=== PATIENT | female | born 1955 | race Caucasian/White ===

== ENCOUNTER → 2019-07-09 | Outpatient (REF) | payer OTHER ==
[~2019-07-09] MED LIST: ACIP1TAB PO; ATEN25TA PO; COUM2.5T17 PO; EFFE150C2 PO; MAGN30TA2 PO; PERC5TAB12 PO; VITA-110 PO; levothyroxine OR
== END ==
LOC: M LAB REF 09:17
PROVIDERS: ATTEND Surgery
DX: D48.5 Neoplasm of uncertain behavior of skin (principal)

== ENCOUNTER → 2020-01-17 | Outpatient (CLI) | payer OTHER ==
--- NOTE | 2020-02-06 09:50 | REPMRS ---
Patient History The patient states she has not had a clinical breast exam in over a year. Family history of breast cancer at age 45 in daughter. Took hormonal contraceptives for 1 year. Took estrogen for 1 month. Digital Woman Screen Mammo: January 17, 2020 - Exam #: [id number] Bilateral CC and MLO view(s) were taken. Technologist: Yolanda Ramirez, Technologist Prior study comparison: January 01, 2019, bilateral digital woman screen mammo performed at [facility]. 2016, bilateral digital mammo screening bilat, performed at [facility]. January 26, 2015, bilateral digital mammo screening bilat, performed at [facility]. FINDINGS: The breast tissue is almost entirely fat. The Volpara volumetric breast density category is: A. There has been no change in the appearance of the mammogram from the prior studies. There is no interval development of dominant mass, architectural distortion, or grouped microcalcification typical of malignancy. 3-D tomosynthesis shows no additional findings. Assessment: BI-RADS/ACR category 1 mammogram. Negative Mammogram. Recommendation Routine screening mammogram of both breasts in 1 year (for women over age 40). This patient's Lifetime Breast Cancer RIsk is estimated at 9.5 %. This mammogram was interpreted with the aid of an FDA-approved computer-aided dectection system. Electronically Signed By: Reji Godfrey MD 02/06/20 0950
== END ==
LOC: M WHC 17:18
PROVIDERS: ATTEND Internal Medicine
DX: Z12.31 Encounter for screening mammogram for malignant neoplasm of breast (principal); Z80.3 Family history of malignant neoplasm of breast

== ENCOUNTER → 2021-01-22 | Outpatient (CLI) | payer OTHER ==
--- NOTE | 2021-01-22 13:45 | REPMRS ---
Patient History The patient states she has not had a clinical breast exam in over a year. Family history of breast cancer at age 45 in daughter. Took hormonal contraceptives for 1 year. Took estrogen for 1 month. No breast complaints today Patient signed the MRS sheet Patient states she has both Pfizer vaccines in her right arm in July, not sure of the dates Priors on PACS Patient Identification Verified Digital Woman Screen Mammo: January 22, 2021 - Exam #: [id number] Bilateral CC and MLO view(s) were taken. Technologist: Yolanda Ramirez, Technologist Prior study comparison: January 17, 2020, bilateral digital woman screen mammo performed at [facility]. January 01, 2019, bilateral digital woman screen mammo performed at [facility]. 2017, bilateral digital mammo screening bilat, performed at [facility]. FINDINGS: The breast tissue is almost entirely fat. The Volpara volumetric breast density category is: A. There has been no change in the appearance of the mammogram from the prior studies. There is no interval development of dominant mass, architectural distortion, or grouped microcalcification typical of malignancy. 3-D tomosynthesis shows no additional findings. Assessment: BI-RADS/ACR category 1 mammogram. Negative Mammogram. Recommendation Routine screening mammogram of both breasts in 1 year (for women over age 40). This patient's [facility] Lifetime Breast Cancer RIsk is estimated at 9.0 %. This mammogram was interpreted with the aid of an FDA-approved computer-aided dectection system. Electronically Signed By: Reji Godfrey MD 01/22/21 5705
== END ==
LOC: M WHC 12:37
PROVIDERS: ATTEND Internal Medicine
DX: Z12.31 Encounter for screening mammogram for malignant neoplasm of breast (principal)

== ENCOUNTER → 2021-07-20 | Outpatient (REF) | payer OTHER ==
[2021-07-20 13:34] LABS: APPEARANCE, URINE TURBID (CLEAR); BACTERIA, URINE AUTO NEGATIVE (NEGATIVE); BILIRUBIN, URINE AUTO NEGATIVE (NEGATIVE); BLOOD, URINE BLOOD NEGATIVE (NEGATIVE); COLOR, URINE AMBER (YELLOW); GLUCOSE, URINE (UA) AUTO NEGATIVE (NEGATIVE); KETONE, URINE AUTO NEGATIVE (NEGATIVE); LEUKOCYTE ESTERASE, URINE AUTO 1+ (NEGATIVE); MUCUS, URINE SMALL (NEGATIVE); NITRITE, URINE AUTO NEGATIVE (NEGATIVE); PROTEIN, URINE AUTO NEGATIVE (NEGATIVE); RBC, URINE AUTO 0 /HPF (0-3); SPECIFIC GRAVITY URINE AUTO 1.023 (1.002-1.035); SQUAMOUS EPITHELIAL CELL UR AU 8 /HPF (0-6); TRANSITIONAL EPITHELIAL AUTO <1 /HPF; UROBILINOGEN, URINE AUTO 0.2 mg/dL (0.0-2.0); WBC, URINE AUTO 0 /HPF (0-3)
== END ==
LOC: M PLALAB 09:28
PROVIDERS: ATTEND Obstetrics & Gynecology
DX: R82.90 Unspecified abnormal findings in urine (principal)

== ENCOUNTER → 2021-09-15 | Outpatient (CLI) | payer OTHER | LOC: M WUC 15:55 | PROVIDERS: ATTEND Internal Medicine | DX: M25.572 Pain in left ankle and joints of left foot (principal) ==

== ENCOUNTER → 2022-02-28 | Outpatient (CLI) | payer OTHER | LOC: M WUC 09:55 | PROVIDERS: ATTEND Internal Medicine | DX: I10 Essential (primary) hypertension (principal) ==

== ENCOUNTER → 2022-05-31 | Outpatient (CLI) | payer OTHER | LOC: M RAD 09:15 | PROVIDERS: ATTEND Physician Assistant | DX: M79.604 Pain in right leg (principal) ==

== ENCOUNTER → 2022-08-08 | Outpatient (CLI) | payer OTHER | LOC: M WHC 14:15 | PROVIDERS: ATTEND Obstetrics & Gynecology | DX: Z12.31 Encounter for screening mammogram for malignant neoplasm of breast (principal) ==

== ENCOUNTER → 2023-05-15 | Outpatient (CLI) | payer OTHER ==
[2023-05-15 16:39] LABS: HEMATOCRIT 40.2 % (36.0-47.0); HEMOGLOBIN 13.1 g/dl (12.0-15.5); MEAN CORPUSCULAR HEMOGLOBIN 28.4 pg (27.0-33.0); MEAN CORPUSCULAR HGB CONC 32.6 g/dl (32.0-36.5); PLATELET COUNT, AUTOMATED 205 10^3/uL (150-450); RED BLOOD COUNT 4.62 10^6/uL (4.00-5.40); WHITE BLOOD COUNT 5.2 10^3/uL (4.0-10.0)
[2023-05-15 17:15] LABS: ALBUMIN 3.4 G/DL (3.2-5.2); BILIRUBIN,TOTAL 0.6 MG/DL (0.3-1.2); CALCIUM LEVEL 8.8 MG/DL (8.3-10.6); CHOLESTEROL RISK RATIO 3.47 (<5); CREATININE FOR GFR 1.09 MG/DL (0.55-1.30); GLOMERULAR FILTRATION RATE 52.8 (>39); HDL CHOLESTEROL 56.4 MG/DL (>40); LDL CHOLESTEROL 93.6 MG/DL (<100); NON-HDL-C 139.6 MG/DL; POTASSIUM SERUM 4.4 MMOL/L (3.5-5.1); THYROID STIMULATING HORMONE 3.217 uIU/ML (0.55-4.78); TOTAL PROTEIN 6.4 G/DL (5.7-8.2)
== END ==
LOC: M WUC 13:38
PROVIDERS: ATTEND Internal Medicine
DX: E03.9 Hypothyroidism, unspecified (principal); K21.9 Gastro-esophageal reflux disease without esophagitis

== ENCOUNTER → 2023-08-09 | Outpatient (CLI) | payer OTHER ==
[~2023-08-09] MED LIST changes: -EFFE150C2 PO; +EFFE150C3 PO
== END ==
LOC: M WHC 08:09
PROVIDERS: ATTEND Internal Medicine
DX: Z12.31 Encounter for screening mammogram for malignant neoplasm of breast (principal)

== ENCOUNTER → 2023-11-14 | Outpatient (CLI) | payer OTHER ==
[2023-11-14 10:38] LABS: EOS % 0.2 % (0.0-3.0); HEMATOCRIT 45.6 % (36.0-47.0); HEMOGLOBIN 14.8 g/dl (12.0-15.5); LYMPH # 1.6 10^3/uL (1.5-5.0); LYMPH % 33.3 % (24.0-44.0); MEAN CORPUSCULAR HEMOGLOBIN 29.1 pg (27.0-33.0); MEAN CORPUSCULAR HGB CONC 32.5 g/dl (32.0-36.5); MEAN CORPUSCULAR VOLUME 89.6 fl (80.0-96.0); MONO # 0.6 10^3/uL (0.0-0.8); MONO % 12.3 % (2.0-8.0); NEUTROPHILS # 2.6 10^3/uL (1.5-8.5); PLATELET COUNT, AUTOMATED 199 10^3/uL (150-450); RED BLOOD COUNT 5.09 10^6/uL (4.00-5.40); WHITE BLOOD COUNT 4.8 10^3/uL (4.0-10.0)
[2023-11-14 11:00] LABS: HEMOGLOBIN A1c 6.2 % (4.0-6.0)
[2023-11-14 11:03] LABS: ALBUMIN 3.6 G/DL (3.2-5.2); CALCIUM LEVEL 9.6 MG/DL (8.3-10.6); CREATININE FOR GFR 1.19 MG/DL (0.55-1.30); GLOMERULAR FILTRATION RATE 47.7 (>39); POTASSIUM SERUM 4.5 MMOL/L (3.5-5.1); TOTAL PROTEIN 6.6 G/DL (5.7-8.2)
[2023-11-14 11:05] LABS: THYROID STIMULATING HORMONE 0.707 uIU/ML (0.55-4.78)
== END ==
LOC: M WUC 08:35
PROVIDERS: ATTEND Internal Medicine
DX: I82.501 Chronic embolism and thrombosis of unspecified deep veins of right lower extremity (principal); E03.9 Hypothyroidism, unspecified; R73.01 Impaired fasting glucose

== ENCOUNTER → 2024-02-27 | Outpatient (CLI) | payer OTHER ==
[~2024-02-27] MED LIST changes: -ACIP1TAB PO; +RABE20TA88 PO
[2024-02-27 12:47] LABS: PLATELET COUNT, AUTOMATED 169 10^3/uL (150-450)
[2024-02-27 13:04] LABS: INR 1.57; PARTIAL THROMBOPLASTIN TIME 34.9 SECONDS (24.8-34.2); PROTHROMBIN TIME 18.2 SECONDS (12.5-14.5)
== END ==
LOC: M WUC 10:10
PROVIDERS: ATTEND Physical Medicine & Rehabilitation
DX: Z01.812 Encounter for preprocedural laboratory examination (principal)

== ENCOUNTER → 2024-06-13 | Outpatient (CLI) | payer OTHER ==
[2024-06-13 16:19] LABS: BASO % 0.4 % (0.0-1.0); EOS % 0.2 % (0.0-3.0); HEMATOCRIT 47.1 % (36.0-47.0); HEMOGLOBIN 15.7 g/dl (12.0-15.5); LYMPH # 1.8 10^3/uL (1.5-5.0); LYMPH % 34.2 % (24.0-44.0); MEAN CORPUSCULAR HEMOGLOBIN 30.8 pg (27.0-33.0); MEAN CORPUSCULAR HGB CONC 33.3 g/dl (32.0-36.5); MEAN CORPUSCULAR VOLUME 92.5 fl (80.0-96.0); MONO # 0.6 10^3/uL (0.0-0.8); MONO % 11.5 % (2.0-8.0); NEUTROPHILS # 2.7 10^3/uL (1.5-8.5); NEUTROPHILS % 53.3 % (36.0-66.0); PLATELET COUNT, AUTOMATED 179 10^3/uL (150-450); RED BLOOD COUNT 5.09 10^6/uL (4.00-5.40); WHITE BLOOD COUNT 5.1 10^3/uL (4.0-10.0)
[2024-06-13 16:24] LABS: INR 1.33; PARTIAL THROMBOPLASTIN TIME 34.7 SECONDS (24.8-34.2); PROTHROMBIN TIME 16.7 SECONDS (12.5-14.5)
[2024-06-13 16:45] LABS: PERCENT SATURATION 67.6 % (13.2-45.0)
[2024-06-13 16:46] LABS: ALBUMIN 3.6 G/DL (3.2-5.2); BILIRUBIN,TOTAL 0.8 MG/DL (0.3-1.2); CALCIUM LEVEL 9.2 MG/DL (8.3-10.6); CREATININE FOR GFR 1.28 MG/DL (0.55-1.30); FERRITIN 19.2 NG/ML (7.3-270.7); GLOMERULAR FILTRATION RATE 43.8 (>39); POTASSIUM SERUM 4.7 MMOL/L (3.5-5.1); TOTAL PROTEIN 6.7 G/DL (5.7-8.2)
== END ==
LOC: M WUC 12:02
PROVIDERS: ATTEND Orthopaedic Surgery
DX: Z01.818 Encounter for other preprocedural examination (principal); M25.561 Pain in right knee; M17.9 Osteoarthritis of knee, unspecified

== ENCOUNTER → 2024-08-07 | Outpatient (CLI) | payer OTHER ==
[2024-08-07 08:48] LABS: BASO % 0.3 % (0.0-1.0); EOS % 0.3 % (0.0-3.0); HEMATOCRIT 36.9 % (36.0-47.0); HEMOGLOBIN 12.1 g/dl (12.0-15.5); LYMPH # 1.2 10^3/uL (1.5-5.0); MEAN CORPUSCULAR HGB CONC 32.8 g/dl (32.0-36.5); MEAN CORPUSCULAR VOLUME 94.6 fl (80.0-96.0); MONO # 0.5 10^3/uL (0.0-0.8); MONO % 7.3 % (2.0-8.0); NEUTROPHILS # 4.9 10^3/uL (1.5-8.5); NEUTROPHILS % 73.3 % (36.0-66.0); PLATELET COUNT, AUTOMATED 237 10^3/uL (150-450)
[2024-08-07 09:06] LABS: ALBUMIN 3.3 G/DL (3.2-5.2); BILIRUBIN,TOTAL 1.5 MG/DL (0.3-1.2); CALCIUM LEVEL 8.6 MG/DL (8.3-10.6); CHOLESTEROL RISK RATIO 3.63 (<5); CREATININE FOR GFR 1.1 MG/DL (0.55-1.30); GLOMERULAR FILTRATION RATE 52.1 (>39); POTASSIUM SERUM 4.4 MMOL/L (3.5-5.1); TOTAL PROTEIN 6.5 G/DL (5.7-8.2)
[2024-08-07 09:08] LABS: THYROID STIMULATING HORMONE 5.966 uIU/ML (0.55-4.78)
[2024-08-08 07:17] LABS: WHITE BLOOD COUNT 6.6 10^3/uL (4.0-10.0)
== END ==
LOC: M LAB 08:10
PROVIDERS: ATTEND Internal Medicine
DX: E03.9 Hypothyroidism, unspecified (principal)

== ENCOUNTER → 2024-08-07 | Outpatient (CLI) | payer OTHER | LOC: M RAD 07:21 | PROVIDERS: ATTEND Physician Assistant | DX: M79.606 Pain in leg, unspecified (principal); M79.89 Other specified soft tissue disorders ==

== ENCOUNTER → 2024-08-21 | Outpatient (REF) | payer OTHER | LOC: M LAB REF 13:10 | PROVIDERS: ATTEND Internal Medicine | DX: R19.7 Diarrhea, unspecified (principal) ==

== ENCOUNTER 2024-12-14 16:01 | Inpatient (IN) | payer OTHER ==
[~2024-12-14] VITALS: Ht 175.3 cm; Wt 113.8 kg
[2024-12-14 20:13] LABS: BASO # 0.0 10^3/uL (0.0-0.2); BASO % 0.5 % (0.0-1.0); EOS # 0.2 10^3/uL (0.0-0.5); EOS % 2.5 % (0.0-3.0); LYMPH # 2.5 10^3/uL (1.5-5.0); LYMPH % 38.4 % (24.0-44.0); MONO # 0.7 10^3/uL (0.0-0.8); MONO % 10.1 % (2.0-8.0); NEUTROPHILS # 3.1 10^3/uL (1.5-8.5); NEUTROPHILS % 48.2 % (36.0-66.0); PLATELET COUNT, AUTOMATED 193 10^3/uL (150-450)
[2024-12-14 20:27] LABS: INR 1.18
[2024-12-14 20:35] LABS: ALT/SGPT 14.0 U/L (7.0-40); AST/SGOT 19.0 U/L (<34); CALCIUM LEVEL 9.6 MG/DL (8.3-10.6); CARBON DIOXIDE LEVEL 26.0 MMOL/L (20-31); CHLORIDE LEVEL 105.0 MMOL/L (98-107); CREATININE FOR GFR 1.08 MG/DL (0.55-1.30); GLOMERULAR FILTRATION RATE 54.9 (>39); POTASSIUM SERUM 4.3 MMOL/L (3.5-5.1); SODIUM LEVEL 144.0 MMOL/L (136-145)
[2024-12-14] MEDS ORDERED: LEVO100T5 PO (21:31)
[2024-12-14] MEDS ORDERED: XARE20TA PO (21:31)
[2024-12-14] MEDS ORDERED: AMIT25TA19 PO (21:33)
[2024-12-14] MEDS ORDERED: HOME MED LIST COMPLETE! XX SCH (21:35)
[2024-12-14] MEDS ORDERED: HEPARIN SOD 5000 UNITS/ML 1 ML VIAL/SYRINGE IV PRN (22:05)
[2024-12-14] MEDS ORDERED: PILL CUTTER 1 EACH XX PRN (22:20)
[2024-12-14] MEDS: LEVOTHYROXINE 100 MCG TABLET (0.1 MG) PO SCH (22:44)
[2024-12-14] MEDS: VENLAFAXINE **XR** 75MG CAPSULE PO SCH (22:45)
[2024-12-14] MEDS: HEPARIN DRIP 25,000 UNITS in IV 1 EA IV SCH (22:51)
[2024-12-14] MEDS: AMITRIPTYLINE 25 MG TABLET PO SCH (23:56)
[2024-12-15 00:21] VITALS: BP 163/92; TEMP 97.3; O2SAT 98
[2024-12-15 04:38] VITALS: BP 164/92; TEMP 97.3; O2SAT 98
[2024-12-15] MEDS: METHOCARBAMOL 1,000 MG/10 ML VIAL IV ONE (04:43)
[2024-12-15] MEDS: ACETAMINOPHEN *IV* 1,000 MG in IV 1 EA IV ONE (04:50)
[2024-12-15 04:57] LABS: PLATELET COUNT, AUTOMATED 175 10^3/uL (150-450)
[2024-12-15 07:49] LABS: ALT/SGPT 13.0 U/L (7.0-40); AST/SGOT 18.0 U/L (<34); CALCIUM LEVEL 9.3 MG/DL (8.3-10.6); CARBON DIOXIDE LEVEL 27.0 MMOL/L (20-31); CHLORIDE LEVEL 106.0 MMOL/L (98-107); CREATININE FOR GFR 1.0 MG/DL (0.55-1.30); GLOMERULAR FILTRATION RATE 60.2 (>39); POTASSIUM SERUM 3.8 MMOL/L (3.5-5.1); SODIUM LEVEL 142.0 MMOL/L (136-145)
[2024-12-15 12:00] VITALS: BP 163/90; TEMP 97.2; O2SAT 96
[2024-12-15] MEDS: amLODIPine 10 MG TAB PO ONE (16:51)
[2024-12-15 18:00] VITALS: BP 158/90
[2024-12-15 18:08] VITALS: BP 160/98
[2024-12-15] MEDS ORDERED: RABEPRAZOLE 20 MG PO SCH (21:00)
[2024-12-15 21:31] VITALS: BP 131/79; TEMP 97.3; O2SAT 97
[2024-12-15] MEDS: PANTOPRAZOLE 40MG TAB PO SCH (21:38)
[2024-12-16 04:04] VITALS: BP 131/78; TEMP 97.2; O2SAT 95
[2024-12-16] MEDS: ACETAMINOPHEN 325 MG TAB PO PRN (04:11)
[2024-12-16] MEDS: amLODIPine 10 MG TAB PO SCH (08:29)
[2024-12-16 09:16] LABS: BASO # 0.0 10^3/uL (0.0-0.2); BASO % 0.3 % (0.0-1.0); EOS # 0.2 10^3/uL (0.0-0.5); EOS % 2.4 % (0.0-3.0); LYMPH # 2.0 10^3/uL (1.5-5.0); LYMPH % 32.3 % (24.0-44.0); MONO # 0.6 10^3/uL (0.0-0.8); MONO % 9.4 % (2.0-8.0); NEUTROPHILS # 3.5 10^3/uL (1.5-8.5); NEUTROPHILS % 55.3 % (36.0-66.0); PLATELET COUNT, AUTOMATED 148 10^3/uL (150-450)
[2024-12-16 10:39] VITALS: BP 119/74
[2024-12-16 12:26] VITALS: BP 125/74; TEMP 97.9; O2SAT 96
[2024-12-16] MEDS ORDERED: ISOVUE-370 76% 100 ML VIAL As Ordered ONE (13:28)
[2024-12-16] MEDS: LIDOCAINE 5% PATCH TD ONE (15:46)
[2024-12-16] MEDS: ENOXAPARIN 100 MG/1 ML SYRINGE (J1650 PER 10MG) SC SCH (15:48)
[2024-12-16 19:51] VITALS: BP 127/72; TEMP 97.3; O2SAT 98
[2024-12-16] MEDS: ACETAMINOPHEN 500 MG TAB PO PRN (20:45)
[2024-12-17 03:56] VITALS: BP 146/77; TEMP 97.3; O2SAT 96
[2024-12-17 07:13] LABS: BASO # 0.0 10^3/uL (0.0-0.2); BASO % 0.4 % (0.0-1.0); EOS # 0.2 10^3/uL (0.0-0.5); EOS % 2.7 % (0.0-3.0); LYMPH # 1.9 10^3/uL (1.5-5.0); LYMPH % 33.6 % (24.0-44.0); MONO # 0.5 10^3/uL (0.0-0.8); MONO % 9.0 % (2.0-8.0); NEUTROPHILS # 3.0 10^3/uL (1.5-8.5); NEUTROPHILS % 53.9 % (36.0-66.0); PLATELET COUNT, AUTOMATED 169 10^3/uL (150-450)
[2024-12-17 07:38] LABS: CALCIUM LEVEL 9.6 MG/DL (8.3-10.6); CARBON DIOXIDE LEVEL 29.0 MMOL/L (20-31); CHLORIDE LEVEL 105.0 MMOL/L (98-107); CREATININE FOR GFR 1.11 MG/DL (0.55-1.30); GLOMERULAR FILTRATION RATE 53.1 (>39); MAGNESIUM LEVEL 1.9 MG/DL (1.8-2.4); POTASSIUM SERUM 4.5 MMOL/L (3.5-5.1); SODIUM LEVEL 144.0 MMOL/L (136-145)
[2024-12-17] MEDS: LIDOCAINE 5% PATCH TD SCH (08:45)
[2024-12-17 12:00] VITALS: BP 133/76; TEMP 97.5; O2SAT 96
[2024-12-17] MEDS: WARFARIN SOD 5MG TAB PO ONE (17:28)
[2024-12-17 20:05] VITALS: BP 134/74; TEMP 98.1; O2SAT 99
[2024-12-18 04:05] VITALS: BP 156/81; TEMP 98.1; O2SAT 96
[2024-12-18 06:04] LABS: INR 0.95
[2024-12-18 12:00] VITALS: BP 152/81; TEMP 97.3
[2024-12-18] MEDS: WARFARIN SOD 5MG TAB PO SCH (17:48)
[2024-12-18 20:00] VITALS: BP 135/73; TEMP 97.3; O2SAT 95
[2024-12-19 04:00] VITALS: BP 145/83; TEMP 97.5; O2SAT 94
[2024-12-19 07:45] LABS: PLATELET COUNT, AUTOMATED 165 10^3/uL (150-450)
[2024-12-19] MEDS ORDERED: NALOXONE INJ 0.4MG/1ML VIAL IV PRN (07:45)
[2024-12-19] MEDS ORDERED: ENOXAPARIN 100 MG/1 ML SYRINGE (J1650 PER 10MG) SC SCH (07:50)
[2024-12-19 07:59] LABS: INR 1.43
[2024-12-19] MEDS: ACETAMINOPHEN 500 MG TAB PO SCH (08:35)
[2024-12-19 12:00] VITALS: BP 135/77; TEMP 97.3
[2024-12-19 19:45] VITALS: BP 134/74; TEMP 97.7; O2SAT 94
[2024-12-20 04:55] VITALS: BP 133/74; TEMP 97.5; O2SAT 95
[2024-12-20 06:53] LABS: PLATELET COUNT, AUTOMATED 155 10^3/uL (150-450)
[2024-12-20 07:04] LABS: INR 2.95
[2024-12-20] MEDS ORDERED: WARF4TAB51 PO (07:38)
[2024-12-20 12:38] VITALS: BP 132/73; TEMP 97.5; O2SAT 95
[2024-12-20] MEDS ORDERED: WARFARIN SOD 1MG TAB PO SCH (17:00)
[2024-12-20 20:28] LABS: INR 3.54
[2024-12-20 20:32] VITALS: BP 123/64; TEMP 97.3; O2SAT 95
[2024-12-20 20:46] VITALS: BP 123/64
[2024-12-21 04:13] VITALS: BP 153/74; TEMP 97.5; O2SAT 96
[2024-12-21 07:49] LABS: INR 3.73
[2024-12-21] MEDS ORDERED: WARFARIN SOD 1MG TAB PO SCH (17:00)
[2024-12-23] MEDS ORDERED: ENOXAPARIN 100 MG/1 ML SYRINGE (J1650 PER 10MG) SC SCH (15:30)
== END 2024-12-21 08:45 | disposition home or self-care (01) | DRG 300 ==
LOC: M ED 16:01 → M ED INP 22:03 → EEVIPCON 22:03 → M MS5PR 12-15 00:12
PROVIDERS: ADMIT Family Medicine; ATTEND General Practice
DX: I82.412 Acute embolism and thrombosis of left femoral vein (principal); D68.61 Antiphospholipid syndrome; I82.432 Acute embolism and thrombosis of left popliteal vein; I82.812 Embolism and thrombosis of superficial veins of left lower extremity; K21.9 Gastro-esophageal reflux disease without esophagitis; I10 Essential (primary) hypertension; M19.90 Unspecified osteoarthritis, unspecified site; M10.9 Gout, unspecified; F41.9 Anxiety disorder, unspecified; F32.A Depression, unspecified; E03.9 Hypothyroidism, unspecified; M25.552 Pain in left hip; G89.29 Other chronic pain; Z79.891 Long term (current) use of opiate analgesic; Z79.01 Long term (current) use of anticoagulants; Z79.899 Other long term (current) drug therapy

== ENCOUNTER → 2024-12-22 | Outpatient (CLI) | payer OTHER ==
[~2024-12-22] MED LIST changes: +AMIT25TA19 PO; +LEVO100T5 PO; +WARF4TAB51 PO; +XARE20TA PO
[2024-12-22 11:04] LABS: INR 3.26
== END ==
LOC: M LAB 10:01
PROVIDERS: ATTEND General Practice
DX: I82.419 Acute embolism and thrombosis of unspecified femoral vein (principal)

== ENCOUNTER → 2024-12-24 | Outpatient (CLI) | payer OTHER ==
[2024-12-24 09:15] LABS: INR 3.98
== END ==
LOC: M LAB 08:02
PROVIDERS: ATTEND General Practice
DX: I82.419 Acute embolism and thrombosis of unspecified femoral vein (principal)

== ENCOUNTER → 2024-12-25 | Outpatient (CLI) | payer OTHER ==
[~2024-12-25] MED LIST changes: +TRAM50TA2 PO; +VENL75TA2 PO
[2024-12-25 08:04] LABS: INR 3.3
== END ==
LOC: M LAB 06:57
PROVIDERS: ATTEND General Practice
DX: I82.419 Acute embolism and thrombosis of unspecified femoral vein (principal)

== ENCOUNTER → 2024-12-30 | Outpatient (POV) | payer OTHER ==
[~2024-12-30] VITALS: Ht 172.7 cm; Wt 112.7 kg
[2024-12-30 11:35] VITALS: BP 130/90; O2SAT 99
== END ==
LOC: M IRPOV 11:25
PROVIDERS: ATTEND Registered Nurse School
DX: Z48.812 Encounter for surgical aftercare following surgery on the circulatory system (principal); Z79.01 Long term (current) use of anticoagulants; Z86.718 Personal history of other venous thrombosis and embolism; Z88.8 Allergy status to other drugs, medicaments and biological substances

== ENCOUNTER → 2025-01-22 | Outpatient (CLI) | payer OTHER ==
[2025-01-22 17:19] LABS: INR 4.78
== END ==
LOC: M WUC 14:54
PROVIDERS: ATTEND Internal Medicine
DX: I82.402 Acute embolism and thrombosis of unspecified deep veins of left lower extremity (principal)

== ENCOUNTER → 2025-01-28 | Outpatient (REF) | payer OTHER ==
[2025-01-28 14:45] LABS: INR 2.52
== END ==
LOC: M LABWUC 14:26
PROVIDERS: ATTEND Internal Medicine
DX: I82.402 Acute embolism and thrombosis of unspecified deep veins of left lower extremity (principal)

== ENCOUNTER → 2025-02-26 | Outpatient (CLI) | payer OTHER ==
[2025-02-26 14:05] LABS: INR 1.9
== END ==
LOC: M WUC 11:08
PROVIDERS: ATTEND Internal Medicine
DX: I82.402 Acute embolism and thrombosis of unspecified deep veins of left lower extremity (principal)

== ENCOUNTER → 2025-03-04 | Outpatient (CLI) | payer OTHER ==
[2025-03-04 12:39] LABS: INR 1.91
== END ==
LOC: M WUC 09:14
PROVIDERS: ATTEND Internal Medicine
DX: I82.402 Acute embolism and thrombosis of unspecified deep veins of left lower extremity (principal)

== ENCOUNTER → 2025-03-26 | Outpatient (CLI) | payer OTHER ==
[2025-03-26 11:45] LABS: INR 3.01
== END ==
LOC: M WUC 09:50
PROVIDERS: ATTEND Internal Medicine
DX: I82.402 Acute embolism and thrombosis of unspecified deep veins of left lower extremity (principal)

== ENCOUNTER → 2025-04-09 | Outpatient (CLI) | payer OTHER ==
[2025-04-09 12:41] LABS: INR 2.08
== END ==
LOC: M WUC 08:12
PROVIDERS: ATTEND Internal Medicine
DX: I82.402 Acute embolism and thrombosis of unspecified deep veins of left lower extremity (principal)

== ENCOUNTER → 2025-05-05 | Outpatient (CLI) | payer OTHER ==
[2025-05-05 12:10] LABS: INR 1.68
== END ==
LOC: M WUC 09:36
PROVIDERS: ATTEND Internal Medicine
DX: I82.402 Acute embolism and thrombosis of unspecified deep veins of left lower extremity (principal)

== ENCOUNTER → 2025-05-13 | Outpatient (CLI) | payer OTHER ==
[2025-05-13 12:19] LABS: BASO # 0.0 10^3/uL (0.0-0.2); BASO % 0.6 % (0.0-1.0); EOS # 0.1 10^3/uL (0.0-0.5); EOS % 3.1 % (0.0-3.0); LYMPH # 1.1 10^3/uL (1.5-5.0); LYMPH % 30.1 % (24.0-44.0); MONO # 0.3 10^3/uL (0.0-0.8); MONO % 9.3 % (2.0-8.0); NEUTROPHILS # 2.0 10^3/uL (1.5-8.5); NEUTROPHILS % 56.6 % (36.0-66.0); PLATELET COUNT, AUTOMATED 207 10^3/uL (150-450)
[2025-05-13 12:22] LABS: ALT/SGPT 573.0 U/L (7.0-40); AST/SGOT 768.0 U/L (<34); CALCIUM LEVEL 9.5 MG/DL (8.3-10.6); CARBON DIOXIDE LEVEL 30.0 MMOL/L (20-31); CHLORIDE LEVEL 103.0 MMOL/L (98-107); CHOLESTEROL LEVEL 185.0 MG/DL (<200); CHOLESTEROL RISK RATIO 2.95 (<5); CREATININE FOR GFR 1.19 MG/DL (0.55-1.30); GLOMERULAR FILTRATION RATE 48.6 (>39); LDL CHOLESTEROL 104.6 MG/DL (<100); NON-HDL-C 122.4 MG/DL; POTASSIUM SERUM 4.8 MMOL/L (3.5-5.1); SODIUM LEVEL 141.0 MMOL/L (136-145); TRIGLYCERIDES LEVEL 89.0 MG/DL (<150)
[2025-05-13 12:37] LABS: INR 2.13
== END ==
LOC: M WUC 08:09
PROVIDERS: ATTEND Internal Medicine
DX: I82.402 Acute embolism and thrombosis of unspecified deep veins of left lower extremity (principal); E03.9 Hypothyroidism, unspecified

== ENCOUNTER → 2025-05-21 | Outpatient (CLI) | payer OTHER | LOC: M WHC 12:28 | PROVIDERS: ATTEND Internal Medicine | DX: Z12.31 Encounter for screening mammogram for malignant neoplasm of breast (principal) ==